=== PATIENT | female | born 1975 | race Two or more races ===

== ENCOUNTER 2021-07-12 14:11 | Inpatient (IN) | payer MEDICAID ==
[~2021-07-12] VITALS: Ht 165.1 cm; Wt 68.7 kg
[2021-07-12 17:14] LABS: Basophils # (auto) 0.1 10 ^3/uL (0-0.2); Eosinophils # (auto) 0 10 ^3/uL (0-0.8); White Blood Cell 12.5 10^3/uL (4.4-10.8)
[2021-07-12 17:16] LABS: Basophils % (auto) 0.8 % (0.0-2.0); Eosinophils % (auto) 0.2 % (0.0-7.0); Hematocrit 39.5 % (36.0-46.0); Hemoglobin 12.8 g/dL (12.2-16.2); Lymphocytes # (auto) 1.9 10 ^3/uL (0.4-5.4); Lymphocytes % (auto) 15.6 % (10.0-50.0); Mean Corpuscular Hemoglobin 28.3 pg (28.0-32.0); Mean Corpuscular Hgb Conc. 32.4 g/dL (32.0-36.0); Mean Corpuscular Volume 87.2 fL (80.0-100.0); Monocytes # (auto) 1.2 10 ^3/uL (0-1.3); Monocytes % (auto) 9.4 % (0.0-12.0); Neutrophils # (auto) 9.2 10 ^3/uL (1.6-8.6); Red Blood Cells 4.53 10^6/uL (4.0-5.20); Red Cell Distribution Width 15.6 % (11.8-14.3)
[2021-07-12 17:25] LABS: Albumin 2.2 g/dL (3.4-5.0); Calcium 8.6 mg/dL (8.5-10.1); INR 1.08 (0.9-1.15); Magnesium 2.7 mg/dL (1.6-2.6); Partial Thromboplastin Time 22.7 sec (23.6-33.0); Potassium 5.4 mmol/L (3.5-5.1)
[2021-07-12 17:30] LABS: BUN/Creatinine Ratio 15.8; Bilirubin, Total 0.8 mg/dL (0.2-1.0)
[2021-07-12] MEDS ORDERED: CLOPIDOGREL BISULFATE 75 MG TAB PO ONE (17:45)
[2021-07-12] MEDS ORDERED: ASPirin 325 MG TAB PO ONE (17:45)
[2021-07-12 19:46] LABS: Urine WBC None Seen /hpf (0 - 5)
[2021-07-12] MEDS ORDERED: FUROSEMIDE 100 MG/10ML VIAL IV ONE (20:00)
[2021-07-12 20:10] LABS: Urine Bacteria FEW /hpf (None Seen); Urine Blood TRACE /uL (Negative); Urine Mucus FEW (None Seen); Urine Specific Gravity 1.029 (1.001-1.035)
[2021-07-12] MEDS ORDERED: IOHEXOL 350 MG/ML 100ML IJ ONE (20:13)
[2021-07-13] MEDS ORDERED: hydrALAZINE HCL 20 MG/ML VL IV PRN (01:30)
[2021-07-13] MEDS ORDERED: ONDANSETRON HCL 4 MG/2 ML VIAL IV PRN (01:30)
[2021-07-13] MEDS ORDERED: DOCUSATE SOD 100 MG CAP PO PRN (01:30)
[2021-07-13] MEDS ORDERED: HYDROcodone-ACET 5/325MG TAB PO PRN (01:30)
[2021-07-13] MEDS ORDERED: MORPHINE SULFATE 4 MG/ML SYR/VIAL IV PRN (01:30)
[2021-07-13] MEDS ORDERED: ACETAMINOPHEN 325 MG TAB PO PRN (01:30)
[2021-07-13 02:10] LABS: Basophils # (auto) 0.1 10 ^3/uL (0-0.2); Basophils % (auto) 0.7 % (0.0-2.0); Eosinophils # (auto) 0.1 10 ^3/uL (0-0.8); Eosinophils % (auto) 0.4 % (0.0-7.0); Hematocrit 39.2 % (36.0-46.0); Hemoglobin 12.8 g/dL (12.2-16.2); Lymphocytes # (auto) 2.3 10 ^3/uL (0.4-5.4); Lymphocytes % (auto) 17.9 % (10.0-50.0); Mean Corpuscular Hemoglobin 28.4 pg (28.0-32.0); Mean Corpuscular Hgb Conc. 32.8 g/dL (32.0-36.0); Mean Corpuscular Volume 86.5 fL (80.0-100.0); Monocytes # (auto) 1.7 10 ^3/uL (0-1.3); Monocytes % (auto) 12.7 % (0.0-12.0); Neutrophils # (auto) 8.9 10 ^3/uL (1.6-8.6); Neutrophils % (auto) 68.3 % (37.0-80.0); Nucleated Red Blood Cells % 0.1 %; Red Blood Cells 4.53 10^6/uL (4.0-5.20); Red Cell Distribution Width 15.2 % (11.8-14.3); White Blood Cell 13.1 10^3/uL (4.4-10.8)
[2021-07-13] MEDS ORDERED: NITROGLYCERIN 0.4 MG SL TAB SL PRN (02:15)
[2021-07-13] MEDS ORDERED: MORPHINE SULFATE INJECTION 2 MG/ML SYRG IV PRN (02:15)
[2021-07-13 02:27] LABS: Albumin 2.2 g/dL (3.4-5.0); BUN/Creatinine Ratio 15.3; Calcium 8.4 mg/dL (8.5-10.1); Potassium 4.1 mmol/L (3.5-5.1)
[2021-07-13 02:32] LABS: Bilirubin, Total 0.8 mg/dL (0.2-1.0); Total Protein 6.8 g/dL (6.4-8.2)
[2021-07-13] MEDS: SODIUM CHLOR 0.9% PF (SALINE LOCK) 10ML VIAL/SYR IV SCH ×3 (06:09→22:29)
[2021-07-13] MEDS ORDERED: CARVEDILOL 12.5 MG TAB PO SCH (10:00)
[2021-07-13] MEDS ORDERED: AZITHROMYCIN 500MG/ 250ML 250 ML IV SCH (10:00)
[2021-07-13] MEDS: ASPirin 81 mg TAB PO SCH (10:41)
[2021-07-13] MEDS: FUROSEMIDE 40 MG/4 ML VIAL IV SCH (10:41)
[2021-07-13] MEDS: FAMOTIDINE (10MG/ML) 2ML VL IV SCH ×2 (10:41→23:08)
[2021-07-13] MEDS: ENOXAPARIN SOD 40 MG/0.4 ML SYRINGE SC SCH (10:42)
[2021-07-13] MEDS: levoFLOXacin 500MG 100 ML IV SCH (13:33)
[2021-07-13] MEDS: CARVEDILOL 12.5 MG TAB PO SCH (22:33)
[2021-07-13 22:40] VITALS: BP 126/92
[2021-07-14 05:00] VITALS: BP 131/90
[2021-07-14] MEDS: SODIUM CHLOR 0.9% PF (SALINE LOCK) 10ML VIAL/SYR IV SCH ×3 (05:48→22:06)
[2021-07-14 06:31] LABS: Basophils # (auto) 0.1 10 ^3/uL (0-0.2); Eosinophils # (auto) 0 10 ^3/uL (0-0.8); Hemoglobin 12.5 g/dL (12.2-16.2); Nucleated Red Blood Cells % 0.1 %
[2021-07-14 06:33] LABS: Basophils % (auto) 0.6 % (0.0-2.0); Eosinophils % (auto) 0.3 % (0.0-7.0); Hematocrit 39.1 % (36.0-46.0); Lymphocytes % (auto) 14.3 % (10.0-50.0); Mean Corpuscular Hemoglobin 27.7 pg (28.0-32.0); Mean Corpuscular Hgb Conc. 31.9 g/dL (32.0-36.0); Monocytes # (auto) 1.5 10 ^3/uL (0-1.3); Monocytes % (auto) 10.8 % (0.0-12.0); Neutrophils # (auto) 10.4 10 ^3/uL (1.6-8.6); Red Cell Distribution Width 15.1 % (11.8-14.3)
[2021-07-14 06:47] LABS: Potassium 4.5 mmol/L (3.5-5.1)
[2021-07-14 06:54] LABS: Albumin 2.1 g/dL (3.4-5.0); BUN/Creatinine Ratio 25.4; Bilirubin, Total 0.6 mg/dL (0.2-1.0); Calcium 8.4 mg/dL (8.5-10.1); Total Protein 5.7 g/dL (6.4-8.2)
[2021-07-14] MEDS: levoFLOXacin 500MG 100 ML IV SCH (08:43)
[2021-07-14] MEDS: ASPirin 81 mg TAB PO SCH (08:44)
[2021-07-14] MEDS: ENOXAPARIN SOD 40 MG/0.4 ML SYRINGE SC SCH (08:44)
[2021-07-14] MEDS: FAMOTIDINE (10MG/ML) 2ML VL IV SCH ×2 (08:44→22:06)
[2021-07-14] MEDS: CARVEDILOL 12.5 MG TAB PO SCH ×2 (08:54→22:08)
[2021-07-14] MEDS: ENALAPRIL MALEATE 2.5 MG TAB PO SCH (08:54)
[2021-07-14] MEDS: FUROSEMIDE 40 MG/4 ML VIAL IV SCH (08:54)
[2021-07-14] MEDS ORDERED: FURO1TAB31 PO (16:09)
[2021-07-14] MEDS ORDERED: LEVO500T31 PO (16:09)
[2021-07-14] MEDS ORDERED: CAR125T PO (16:09)
[2021-07-14] MEDS ORDERED: ENAL2.5T7 PO (16:09)
[2021-07-14 22:00] VITALS: BP 130/93
[2021-07-15 05:00] VITALS: BP 136/69
[2021-07-15] MEDS: SODIUM CHLOR 0.9% PF (SALINE LOCK) 10ML VIAL/SYR IV SCH ×2 (05:52→13:03)
[2021-07-15 09:00] VITALS: BP 139/98
[2021-07-15 09:22] VITALS: BP 139/98
[2021-07-15 09:38] VITALS: BP 109/97
[2021-07-15] MEDS: ENOXAPARIN SOD 40 MG/0.4 ML SYRINGE SC SCH (10:00)
[2021-07-15] MEDS: levoFLOXacin 500MG 100 ML IV SCH (11:15)
[2021-07-15] MEDS: CARVEDILOL 12.5 MG TAB PO SCH (11:16)
[2021-07-15] MEDS: FUROSEMIDE 40 MG/4 ML VIAL IV SCH (11:16)
[2021-07-15] MEDS: FAMOTIDINE (10MG/ML) 2ML VL IV SCH (11:17)
[2021-07-15] MEDS: ENALAPRIL MALEATE 2.5 MG TAB PO SCH (11:17)
[2021-07-15] MEDS: ASPirin 81 mg TAB PO SCH (11:17)
[2021-07-15 13:00] VITALS: BP 126/97
== END 2021-07-15 16:51 | disposition left against medical advice (07) | DRG 194 ==
LOC: ER 14:11 → TELE 07-13 02:07 → TELE-EAST 07-13 22:40 → TELE-CENTR 07-14 10:31
PROVIDERS: ADMIT Nurse Practitioner Family; ATTEND Internal Medicine
PROC: 0W993ZZ Drainage of Right Pleural Cavity, Percutaneous Approach (ICD-10-PCS; principal; 2021-07-15)
DX: I11.0 Hypertensive heart disease with heart failure (principal); J91.8 Pleural effusion in other conditions classified elsewhere; I42.9 Cardiomyopathy, unspecified; J18.9 Pneumonia, unspecified organism; E88.09 Other disorders of plasma-protein metabolism, not elsewhere classified; I50.23 Acute on chronic systolic (congestive) heart failure; I44.7 Left bundle-branch block, unspecified; E87.5 Hyperkalemia; D75.839 Thrombocytosis, unspecified; J45.909 Unspecified asthma, uncomplicated; J98.11 Atelectasis; F15.10 Other stimulant abuse, uncomplicated; R73.9 Hyperglycemia, unspecified; Z20.822 Contact with and (suspected) exposure to COVID-19; D72.829 Elevated white blood cell count, unspecified; R00.0 Tachycardia, unspecified; Z53.29 Procedure and treatment not carried out because of patient's decision for other reasons
CPT/HCPCS: 36415; 71045; 71046; 71275; 76604; 76942; 80053; 80061; 81001; 82728; 83036; 83735; 83880; 83986; 84439; 84443; 84484; 84702; 85025; 85379; 85610; 85730; 86141; 87070; 87205; 87426; 89051; 93005; 93306; 93970; 96365; 96366; 96367; 96375; 96376; 99291; G0378; J1956; J3490

== ENCOUNTER 2021-07-17 22:56 | Emergency (ER) | payer MEDICAID ==
[~2021-07-17] VITALS: Ht 154.9 cm; Wt 63.5 kg
[~2021-07-17 22:56] MED LIST: CAR125T PO; ENAL2.5T7 PO; FURO1TAB31 PO; LEVO500T31 PO
[2021-07-18 00:28] LABS: Basophils # (auto) 0.1 10 ^3/uL (0-0.2); Basophils % (auto) 0.7 % (0.0-2.0); Eosinophils # (auto) 0 10 ^3/uL (0-0.8); Eosinophils % (auto) 0.3 % (0.0-7.0); Hematocrit 45.8 % (36.0-46.0); Hemoglobin 14.6 g/dL (12.2-16.2); Lymphocytes # (auto) 1.1 10 ^3/uL (0.4-5.4); Lymphocytes % (auto) 8.5 % (10.0-50.0); Mean Corpuscular Hemoglobin 27.5 pg (28.0-32.0); Mean Corpuscular Hgb Conc. 31.9 g/dL (32.0-36.0); Monocytes # (auto) 1.4 10 ^3/uL (0-1.3); Monocytes % (auto) 10.9 % (0.0-12.0); Neutrophils # (auto) 10.1 10 ^3/uL (1.6-8.6); Neutrophils % (auto) 79.6 % (37.0-80.0); Nucleated Red Blood Cells % 0.2 %; Red Blood Cells 5.33 10^6/uL (4.0-5.20); Red Cell Distribution Width 14.8 % (11.8-14.3); White Blood Cell 12.7 10^3/uL (4.4-10.8)
[2021-07-18 00:34] LABS: INR 1.08 (0.9-1.15); Partial Thromboplastin Time 24.7 sec (23.6-33.0)
[2021-07-18 00:38] LABS: Potassium 3.7 mmol/L (3.5-5.1)
[2021-07-18 00:46] LABS: Albumin 2.5 g/dL (3.4-5.0); BUN/Creatinine Ratio 16.7; Magnesium 2.4 mg/dL (1.6-2.6)
[2021-07-18 00:51] LABS: Bilirubin, Total 0.6 mg/dL (0.2-1.0); Total Protein 7.6 g/dL (6.4-8.2)
[2021-07-18] MEDS ORDERED: ASPirin 81 mg TAB PO ONE (01:45)
[2021-07-18 03:00] VITALS: BP 142/96
== END 2021-07-18 04:30 | disposition home or self-care (01) ==
LOC: EDBD 22:56 → EDSEX 22:56 → ER 22:56
DX: I42.9 Cardiomyopathy, unspecified (principal); J45.909 Unspecified asthma, uncomplicated; I25.2 Old myocardial infarction; F15.10 Other stimulant abuse, uncomplicated
CPT/HCPCS: 36415; 71045; 80053; 83735; 83880; 84484; 85025; 85610; 85730; 93005

== ENCOUNTER 2023-01-27 04:13 | Emergency (ER) | payer MEDICAID ==
[~2023-01-27] VITALS: Ht 157.5 cm; Wt 100.0 kg
[~2023-01-27 04:13] MED LIST changes: +ENAL1TAB42 PO; -ENAL2.5T7 PO
== END 2023-01-27 04:20 ==
LOC: EDBD 04:13 → ER 04:13
DX: I46.9 Cardiac arrest, cause unspecified (principal); J45.909 Unspecified asthma, uncomplicated; I50.9 Heart failure, unspecified; Z79.899 Other long term (current) drug therapy
CPT/HCPCS: 31500; 92950